=== PATIENT | male | born 1945 | race Caucasian/White ===

== ENCOUNTER 2022-03-19 00:34 | Day surgery (SDC) | payer MEDICARE, SELFPAY ==
--- NOTE | 2022-03-18 13:07 | PC.NURSE ---
Report to the Outpatient Waiting Room, entrance under the green pavilion located off [address], at time 1400 on date __03/19/22 . Planned Procedure Time: _1600 . Time changes happen often and if your time is changed the preop area will call you the afternoon before. - You and your visitor will be asked to self-screen and do not enter if you have any COVID symptoms. - Only one visitor is requested with a max of two and NO children visitors are allowed at this time. - The patient visitor may be requested to leave or wait in car when not with patient due to distancing restrictions. - A mask is optional within the hospital. Patients may have clear liquids (water, carbonated beverages, clear teas, apple juice) until 3 hours prior to surgery with a maximum of 20 ounces. - No food from midnight until time of surgery - Infants may have breast milk until 4 hours before surgery, formula 6 hours prior to surgery. - Children will be allowed to drink immediately following surgery. If applicable, please bring a bottle or sippy cup to assist with drinking. Juice, water, soda, and popsicles are readily available. For infants on formula, please bring formula the day of surgery. Pacifiers are allowed. Take the following medications with a SIP of water the morning of surgery: ____AMLODIPINE Medications to discontinue per physician __PT STATES LAST DOSE ASPIRIN AND NAPRORXEN _TODAY PER DR GONZALES Date to take last dose Please no make-up, nail swazi, hairspray, perfume, deodorant, or body powder the day of surgery. No jewelry (including any body piercings) or valuables the day of surgery, leave them at home. Please take a shower or bath the night before, or the morning of, surgery with an antibacterial soap. Wear comfortable, loose fitting clothing. Children are encouraged to wear pajamas. - Jewelry must be removed prior to entering the operating room. Rings and piercings that are not removed may be cut off. - The hospital will not accept responsibility for valuables. - Please leave all valuables, including medications, at home the day of surgery. If you are going home after surgery, a licensed chuck wagon driver must drive you home. - NO public transportation without another adult if you receive anesthesia. - We recommend that an adult stay with you for 24 hours following discharge. - We also recommend that you do not drive, make important decision, drink alcoholic beverages, or take any drugs that were not prescribed by your health care provider for at least 24 hours after your discharge lonnie Follow any additional instructions given to you from your surgeon. If you or anyone in your household have experienced Covid symptoms in the past week, please notify your surgeon or the nurse liaison at the phone number below for possible testing. Telephone instructions given to __PATIENT and asked if any additional questions and then verbalized understanding. Patient advised to call surgeon office or pre surgery nurse liaison [phone] if any additional questions.
[2022-03-18 13:14] VITALS: BMI 43.3
[2022-03-19] VITALS (7 sets, daily range): BP systolic 125–172; BP diastolic 70–95; PULSE 55–75; RESP 10–16; TEMP 36.4–36.7; O2SAT 98–100
--- NOTE | ~2022-03-19 | XR_ITS ---
XR urethrocystogram DATE: 03/19/2022 15:08 INDICATION: Urethral dilatation TECHNIQUE: 2 spot C-arm images of the pelvic area 28.9 seconds fluoroscopy time [id number] mGym2 COMPARISON: None FINDINGS: A catheter overlies the urethra and urinary bladder. A small amount of contrast material wi thin the urinary bladder. IMPRESSION: Urethral dilatation; please refer to urology procedure report. Reviewed, dictated and finalized at [facility] Reviewed, dictated and finalized at [facility]. TO CHIP FRIER
--- NOTE | 2022-03-19 08:04 | ECG_ITS ---
Measurements Intervals [place] Rate: 67 P: 49 MD: 197 QRS: -23 QRSD: 106 T: -4 QT: 377 QTc: 398 Interpretive Statements SINUS RHYTHM INFERIOR INFARCT, AGE INDETERMINATE ABNORMAL ECG NO PREVIOUS ECG AVAILABLE FOR COMPARISON Electronically Signed On 03-19-2022 12:56:36 HEMODIALYSIS LAB TECHNICIAN by Erich German D.O.
[2022-03-19 13:04] LABS: Anion Gap 7 mmol/L (8-16); Blood Urea Nitrogen 15 mg/dL (9-20); Calcium 8.9 mg/dL (8.4-10.2); Carbon Dioxide 28 mmol/L (22-30); Chloride 100 mmol/L (98-107); Estimated CRCL calculation 79 ml/min; Estimated Glomerular Filt Rate > 60; Glucose 106 mg/dL (65-110); Potassium 4.2 mmol/L (3.4-5.0); Sodium 135 mmol/L (137-145)
[2022-03-19] MEDS: LACTATED RINGERS 1,000 ML 30 ML IV CONT (13:18)
--- NOTE | 2022-03-19 13:52 | WPDANESEPPF ---
Anes - Initial Pre Proc Eval Procedure: Operation Date: 03/19/22 14:30 Proposed Procedures p Cystoscopy with Urethral Dilation, Retrograde Urethrogram - Patrick Haney MD Date/Time: 03/19/22 13:52 Surgeon: Patrick Haney MD Pre Op Diagnosis: uretheral stricture Patient Data Age: 77 Gender: M Height: 1.73 m Weight: 129 kg Last Vital Signs Temp 36.7 C 03/19/22 12:57 Pulse 75 03/19/22 12:57 Resp 14 03/19/22 12:57 BP 134/85 03/19/22 12:57 Pulse Ox 100 03/19/22 12:57 O2 Del Method Room Air 03/19/22 12:57 Allergies Allergy/AdvReac Type Severity Reaction Status Date / Time doxycycline AdvReac Severe urinary Verified 03/19/22 13:18 retention Penicillins AdvReac Severe Rash Verified 03/19/22 13:18 amlodipine [From Lotrel] AdvReac Unknown Unknown Verified 03/19/22 13:18 benazepril [From Lotrel] AdvReac Unknown Unknown Verified 03/19/22 13:18 Home Medications Medication Instructions Recorded Confirmed Type amlodipine 5 mg tablet 5 mg PO DAILY #90 tabs 01/01/22 03/18/22 Rx aspirin 81 mg chewable tablet 81 mg PO DAILY 01/01/22 03/18/22 History (Lea Chewable Low Dose Aspirin) furosemide 20 mg tablet 20 mg PO QAM #90 tabs 01/01/22 03/18/22 Rx metoprolol succinate 50 mg 50 mg PO DAILY #90 tabs 01/01/22 03/18/22 Rx tablet,extended release 24 hr naproxen 500 mg tablet 500 mg PO BID #180 tabs 01/01/22 03/18/22 Rx tamsulosin 0.4 mg capsule 0.4 mg PO DAILY #90 caps 01/01/22 03/18/22 Rx hydrocortisone 2.5 % topical cream 1 applic topical BID PRN 03/13/22 03/18/22 Rx hemorrhoids #30 grams Laboratory Tests 03/19/22 12:35 Sodium 135 mmol/L L mmol/L (137-145) Potassium 4.2 mmol/L mmol/L (3.4-5.0) Chloride 100 mmol/L mmol/L (98-107) Carbon Dioxide 28 mmol/L mmol/L (22-30) Anion Gap 7 mmol/L L mmol/L (8-16) BUN 15 mg/dL mg/dL (9-20) Creatinine 0.90 mg/dL mg/dL (0.7-1.3) Estim Creat Clear Calc 79 ml/min ml/min Estimated GFR > 60 (59 - ) Glucose 106 mg/dL mg/dL (65-110) Calcium 8.9 mg/dL mg/dL (8.4-10.2) Patient hx anesthesia problems: none Family hx anesthesia problems: none Results Review: All pre-operative results and documents have been reviewed as part of the pre-operative evaluation. [facility], [facility] Past Medical History Medical History GERD (gastroesophageal reflux disease) History of prostate cancer Hypertension Osteoarthritis Raynauds disease Urethral stricture Urinary retention Social History Social History Smoking status: Never smoker Tobacco type: cigarettes Smoking end date: 03/08/66 Alcohol intake: current Alcohol use details: rarely Substance use: never Substance use type: does not use Living arrangements: with family Gender identity (if verbalized by the patient): Male Sexual Orientation (if Verbalized by the Patient): Straight or Heterosexual Spiritual care concerns: No Anes - Eval Final PreProcedure Day of Procedure 03/19/22 13:52 Patient weight: morbidly obese Heart: regular rate and rhythm Lungs: clear to auscultation Airway: Mallampati scale class II Neurological: alert and oriented Last oral intake: >/= 8 hours ASA classification: III Emergent: no Anesthetic plan: proceed Anesthesia type and monitoring: general LMA and standard monitoring Results Review: All pre-operative results and documents have been reviewed as part of the pre-operative evaluation. Informed Consent: The patient's anesthetic plan and its attendant risks and benefits were discussed with the patient/family/POA. Questions were solicited and answers provided to the satisfaction of the patient/family/POA.
[2022-03-19 14:10] LABS: Appearance Urine Clear (Clear); Bilirubin Urine Negative (Negative); Blood Urine Trace-intact (Negative); Color Urine Yellow (Yellow); Glucose Urine UA Negative (Negative); Ketones Urine Negative (Negative); Leukocyte Esterase Ur 1+ LEU/UL (Negative); Nitrate Urine Negative (Negative); Protein Urine 2+ mg/dL (Negative)
--- NOTE | 2022-03-19 14:20 | WPDHPUPDATE1 ---
History and Physical Update Update Date/Time: 03/19/22 14:20 History and Physical has been reviewed, including an updated exam of the patient. There are NO changes in the patient's condition. Risks, benefits, and alternatives have been discussed and questions answered. Patient agrees to proceed with procedure. Proceed with retrograde urethrogram and urethral dilatation with cystoscopy
[2022-03-19 14:23] LABS: Bacteria Urine Trace /hpf; Mucus Urine Rare /lpf; Squamous Epithelial Cell Urine Rare /hpf (Few); WBC Urine 31-50 /hpf
[2022-03-19 14:35] LABS: Add Urine Microscopic? YES
[2022-03-19] MEDS: ceFAZolin 3 GM/D5W 100 ML 100 ML IVPB (14:39)
[2022-03-19] MEDS: LIDOCAINE HCL 2% GEL UROJET 10 ML PKG MUCOUS MEM (15:03)
--- NOTE | 2022-03-19 15:07 | W.PM.PROC2 ---
Procedure Note - Detailed Date of Procedure 03/19/22 Pre-op Diagnosis uretheral stricture Post-op Diagnosis Same Procedure Performed Retrograde urethrogram, urethral dilation with amplantz dilators, cystoscopy Surgeon Patrick Haney MD Anesthesia General Description of Procedure Patient is taken to the operative suite correctly identified. Once anesthesia was obtained was placed in dorsal lithotomy position and prepped and draped usual sterile fashion. Nineteen [place] scope inserted into the meatus but the stricture was too tight. We thus placed a red rubber catheter into the meatus did a retrograde urethrogram. There was bulbar stricture the proximal urethra. We were able to manipulate a superstiff wire through the stricture up into the bladder. Using dilators we dilated up to 22 [place]. Reinspection with the cystoscope revealed no other abnormalities in the bladder. He does have some minimal lateral lobe. The bladder itself has 1+ trabeculation without any evidence of tumors. 2% viscous lidocaine was inserted into the urethra. A 18 [place] tip catheter was then passed over the wire and 10 cc were placed in the balloon. Patient is taken recovery stable condition. He will follow-up next Wednesday or for Rangel catheter removal. Estimated Blood Loss 0 Drains Yes Packing No Pathology None sent Complications No immediate complications Condition Stable Disposition PACU
[2022-03-19 15:20] LABS: Glucose Point of Care 108 mg/dl (65-105)
== END 2022-03-19 17:06 | disposition home or self-care (01) ==
PROVIDERS: Anesthesiology; PCP Physician Assistant Medical; Visit Provider Urology
PROC: (CPT 52352; principal; 2022-03-19 14:30)
DX: N35.912 Unspecified bulbous urethral stricture, male (principal); I10 Essential (primary) hypertension; K21.9 Gastro-esophageal reflux disease without esophagitis; I73.00 Raynaud's syndrome without gangrene; Z79.82 Long term (current) use of aspirin; Z85.46 Personal history of malignant neoplasm of prostate; Z87.891 Personal history of nicotine dependence; E66.01 Morbid (severe) obesity due to excess calories; Z68.41 Body mass index [BMI] 40.0-44.9, adult; Z79.899 Other long term (current) drug therapy
CPT/HCPCS: 52281; 36415; 51610; 74450; 80048; 81001; 82948; 87086; 87147; 87181; 87186; 93005; A9270; C1726; C1758; C1769; J0690; J1100; J2405; J2704; J3010; J7120

== ENCOUNTER 2023-06-28 15:34 | Emergency (ER) | payer MEDICARE, SELFPAY ==
[2023-06-28 15:37] VITALS: BP 148/70; PULSE 99; RESP 20; TEMP 36.7; O2SAT 98
--- NOTE | 2023-06-28 16:07 | ED.MALEGU ---
HPI - Male Genitourinary General Chief complaint: Urogenital-Male Stated complaint: urinary retention Time Seen by Provider: 06/28/23 15:44 History of Present Illness HPI Narrative: Pt presents with inability to void urine. Pt has history of prostate cancer and BPH and has had to have silva placed in past. Pt has not voided since early this morning. Pt has seen Dr Haney in past. Related Data Home Medications Medication Instructions Recorded Confirmed aspirin 81 mg chewable tablet 81 mg PO DAILY 01/01/22 06/22/23 (Lea Chewable Low Dose Aspirin) furosemide 20 mg tablet 10 mg PO DAILY 03/05/23 06/22/23 Allergies Allergy/AdvReac Type Severity Reaction Status Date / Time doxycycline AdvReac Severe urinary Verified 06/28/23 15:35 retention Penicillins AdvReac Severe Rash Verified 06/28/23 15:35 benazepril [From Lotrel] AdvReac Unknown Unknown Verified 06/28/23 15:35 Review of Systems Review of Systems: All systems reviewed & are unremarkable except as noted in HPI and below PMFSH Past Medical History Medical History (Updated 06/28/23 @ 17:15 by Nery Olivas III, DO) GERD (gastroesophageal reflux disease) History of prostate cancer Hyperglycemia Hypertension Osteoarthritis Raynauds disease Urethral stricture Urinary retention Surgical History Surgical History No pertinent past surgical history Social History Social History Smoking status: Former smoker Tobacco type: cigarettes Smoking end date: 03/08/66 Alcohol intake: current Alcohol use details: rarely Substance use: never Substance use type: does not use Lack of Transportation: No Lack of Food: Never True Current Housing: I Have Housing Concerned About Future Housing: No Difficulty Paying Gas/Electric Bills: No Difficulty Paying for Meds: No Currently Unemployed: No Difficulty w/ Childcare or Family Care: No Living arrangements: with family Occupation/Education: retired Gender identity (if verbalized by the patient): Male Sexual Orientation (if Verbalized by the Patient): Straight or Heterosexual Spiritual care concerns: No Exam Const: General: healthy appearing Nutritional Appearance: well nourished Limitations: no limitations Resp: Effort & Inspection: normal respiratory effort Auscultation: clear to auscultation bilaterally Cardio: Rate: regular rate Rhythm: regular rhythm GI: GI Palp: Yes Soft to palpation and Yes Tenderness to palpation present (GI) (suprapubic) Auscultation: normal bowel sounds : Scrotum: scrotum normal Skin: General skin exam: normal color Wounds: no wounds Neuro: General: patient oriented x3, moves all extremities, no meningeal signs and no focal motor deficits Cranial nerves: Yes CN's II-XII intact bilaterally Speech: normal speech Extrem: General: normal to inspection and no clubbing, cyanosis or edema Psych: Mental Status: mental status grossly normal Affect: normal affect Attitude: cooperative Course Vital Signs Vital signs: Vital Signs Temperature 98.0 F 06/28/23 15:37 Pulse Rate 99 06/28/23 15:37 Respiratory Rate 20 06/28/23 15:37 Blood Pressure 148/70 H 06/28/23 15:37 Pulse Oximetry 98 06/28/23 15:37 Oxygen Delivery Room Air 06/28/23 15:37 Temperature 98.0 F 06/28/23 15:37 Pulse Rate 99 06/28/23 15:37 Respiratory Rate 20 06/28/23 15:37 Blood Pressure 148/70 H 06/28/23 15:37 Pulse Oximetry 98 06/28/23 15:37 Oxygen Delivery Room Air 06/28/23 15:37 MDM - Male Genitourinary MDM Narrative Medical decision making narrative: likely bph. will place silva and send of ua. ua clear silva placed and pt feels much better. will send home with leg bag and follow up with Dr Haney. Lab Data Labs: Lab Results 06/28/23 Range/Units 16:23 Urine Color Yellow (Yellow) Ur
[2023-06-28 17:00] LABS: Appearance Urine Clear (Clear); Bacteria Urine None Seen /hpf; Bilirubin Urine Negative (Negative); Blood Urine 1+ (Negative); Color Urine Yellow (Yellow); Glucose Urine UA Negative (Negative); Ketones Urine Negative (Negative); Leukocyte Esterase Ur Negative LEU/UL (Negative); Nitrate Urine Negative (Negative); Non Pathogenic Casts 0-2; Protein Urine Negative (Negative); RBC Urine 0-2 /hpf (0-2); Specific Grav Ur 1.005 (1.001-1.035); Squamous Epithelial Cell Urine None Seen /hpf (Few); Urobilinogen Urine 0.2 mg/dL (<2.0); WBC Urine 0-5 /hpf (0-3)
[2023-06-28 17:06] LABS: Add Urine Microscopic? YES
== END 2023-06-28 18:07 | disposition home or self-care (01) ==
PROVIDERS: Emergency Provider Emergency Medicine; PCP Physician Assistant Medical
DX: R33.9 Retention of urine, unspecified (principal); K21.9 Gastro-esophageal reflux disease without esophagitis; Z85.46 Personal history of malignant neoplasm of prostate; I10 Essential (primary) hypertension; M19.90 Unspecified osteoarthritis, unspecified site; I73.00 Raynaud's syndrome without gangrene
CPT/HCPCS: 51702; 81001; 99283

== ENCOUNTER 2025-01-11 05:10 | Emergency (ER) | payer MEDICARE, SELFPAY ==
[2025-01-11 05:15] VITALS: BP 187/87; PULSE 74; RESP 18; O2SAT 100
--- NOTE | 2025-01-11 05:21 | PC.NURSE ---
post void bladder scan 715ml
--- NOTE | 2025-01-11 06:15 | ED.GENADULT ---
HPI - General Adult General Chief complaint: Urogenital-Male Stated complaint: unable to urinate Time Seen by Provider: 01/11/25 05:24 History of Present Illness HPI narrative: This is a 79-year-old male with a history of urethral stricture presenting for urinary retention. Patient says that his stream has been getting weaker over the last several weeks and then today he has been unable to pass more than a couple drops. He is now having fullness in his lower abdomen but no true pain. No other symptoms. He saw Dr. Garcia - Urology on December 25 Appears they are arranging to do another dilation. Related Data Home Medications ?Medication ?Instructions ?Recorded ?Confirmed ?Last Taken ?Type aspirin 81 mg chewable tablet 81 mg PO DAILY 01/01/22 12/18/24 Unknown History (Lea Chewable Low Dose Aspirin) furosemide 20 mg tablet 10 mg PO DAILY 12/18/24 12/18/24 Unknown History tamsulosin 0.4 mg capsule 0.4 mg PO QHS 12/28/24 Unknown History Allergies Allergy/AdvReac Type Severity Reaction Status Date / Time doxycycline AdvReac Severe urinary Verified 01/11/25 05:11 retention Penicillins AdvReac Severe Rash Verified 01/11/25 05:11 benazepril (From Lotrel) AdvReac Unknown Unknown Verified 01/11/25 05:11 REPLACED BY [facility] Past Medical History Medical History (Updated 01/11/25 @ 06:20 by Brandon Sher MD) Hyperglycemia Urinary retention Urethral stricture Hypertension Raynauds disease GERD (gastroesophageal reflux disease) Osteoarthritis History of prostate cancer radiation treatment 2018 Surgical History Surgical History No pertinent past surgical history Social History Social History Tobacco type: cigarettes Smoking end date: 03/08/66 Alcohol intake: current Alcohol use details: rarely Substance use: never Substance use type: does not use Lack of Transportation: No Lack of Food: Never True Current Housing: I Have Housing Concerned About Future Housing: No Difficulty Paying Gas/Electric Bills: No Difficulty Paying for Meds: No Currently Unemployed: No Difficulty w/ Childcare or Family Care: No Living arrangements: with family Occupation/Education: retired Gender identity (if verbalized by the patient): Male Sexual Orientation (if Verbalized by the Patient): Straight or Heterosexual Spiritual care concerns: No Exam Narrative: APPEARANCE: No apparent distress. Head: atraumatic. EYES: EOMI, NOSE: Atraumatic NECK: Trachea midline RESPIRATORY: No increased rate of breathing CARDIOVASCULAR: RRR, ABDOMINAL: Fullness in the suprapubic region : normal external genitalia MUSCULOSKELETAl: No obvious deformities NEURO: Alert. Moving 4/4 extremities SKIN:: Warm, dry. Normal color PSYCHIATRIC: Normal affect Course Vital Signs Vital signs: Vital Signs Pulse Rate 74 01/11/25 05:15 Respiratory Rate 18 01/11/25 05:15 Blood Pressure 187/87 H 01/11/25 05:15 Pulse Oximetry 100 01/11/25 05:15 Oxygen Delivery Room Air 01/11/25 05:15 Pulse Rate 74 01/11/25 05:15 Respiratory Rate 18 01/11/25 05:15 Blood Pressure 187/87 H 01/11/25 05:15 Pulse Oximetry 100 01/11/25 05:15 Oxygen Delivery Room Air 01/11/25 05:15 Medical Decision Making MDM Narrative Medical decision making narrative: -Course: 79-year-old male with urethral stricture presenting urinary retention. 750 cc postvoid residual. multiple attempts were made to place a Silva catheter using multiple different sizes and a coude without success. Urology was consulted. Dr. Goodson is coming to bedside. Silva was placed. Discharged with urology follow-up. -DDX includes but is not limited to: urethral stricture, UTI Vital Signs Vital Signs: Vital Signs Pulse Rate 74 01/11/25 05:15 Respiratory Rate 18 01/11/25 05:15 Blood Pressure 187/87 H 01/11/25 05:15 Pulse Oximetry 100 01/11/25 05:15 Oxygen Delivery Room Air 01/11/25 05:15 Pulse Rate 74 01/11/25 05:15 Respiratory Rate 18 01/11/25 05:15 Blood Pressure 187/87 H 01/11/25 05:15 Pulse Oximetry 100 01/11/25 05:15 Oxygen Delivery Room Air 01/11/25 05:15 Discharge Plan Discharge Clinical Impression: Acute urinary retention Patient Disposition: Home Condition: Stable Instructions: Antibiotic Form, Urinary Retention in Men (ED) Additional Instructions: Please follow-up with your urologist 5-7 days. Please return if your silva stops draining or you develop abdominal pain. Patient Language: Com[place] Prescriptions: No Action aspirin [Lea Chewable Aspirin] 81 mg tablet,chewable 81 mg PO DAILY furosemide 20 mg tablet 10 mg PO DAILY amlodipine 5 mg tablet 5 mg PO DAILY Qty: 90 1RF metoprolol succinate 50 mg tablet extended release 24 hr 50 mg PO DAILY Qty: 90 1RF naproxen 500 mg tablet 500 mg PO BID Qty: 180 0RF hydrocortisone 2.5 % cream 1 applic topical BID PRN (Reason: hemorrhoids) Qty: 30 2RF tamsulosin 0.4 mg capsule 0.4 mg PO QHS lisinopril 5 mg tablet 5 mg PO DAILY Qty: 30 0RF Follow-up/Referrals: PHYSICIAN,CON[facility]CTOR [employer] [Primary Care Provider, Internal Medicine]
--- NOTE | 2025-01-11 07:14 | WPDURCON ---
Assessment and Plan Assessment and plan (1) Acute urinary retention: Code(s): R33.8 - Other retention of urine Status: Acute (2) Urethral stricture: Code(s): N35.919 - Unspecified urethral stricture, male, unspecified site Status: Acute (3) Urinary retention: Code(s): R33.9 - Retention of urine, unspecified Status: Acute Assessment and Plan: Bulbous urethral stricture dilated to 22F at bedside / 18F Coude' catheter placed. Urology Consult Note HPI Date Seen: 01/11/25 Primary Care Provider: T[employer] W[employer]ER PHYSICIAN Consult Narrative Narrative: Marco Radford is a 79 year old male with history of urethral stricture that has recurred. In ER with retention 700cc and staff unable to place catheter. Review of Systems Review of Systems: All systems reviewed & are unremarkable except as noted in HPI and below PMFSH Past Medical History Medical History (Updated 01/11/25 @ 06:20 by Brandon Sehr MD) Hyperglycemia Urinary retention Urethral stricture Hypertension Raynauds disease GERD (gastroesophageal reflux disease) Osteoarthritis History of prostate cancer radiation treatment 2017 Surgical History Surgical History No pertinent past surgical history Social History Social History Tobacco type: cigarettes Smoking end date: 03/08/66 Alcohol intake: current Alcohol use details: rarely Substance use: never Substance use type: does not use Lack of Transportation: No Lack of Food: Never True Current Housing: I Have Housing Concerned About Future Housing: No Difficulty Paying Gas/Electric Bills: No Difficulty Paying for Meds: No Currently Unemployed: No Difficulty w/ Childcare or Family Care: No Living arrangements: with family Occupation/Education: retired Gender identity (if verbalized by the patient): Male Sexual Orientation (if Verbalized by the Patient): Straight or Heterosexual Spiritual care concerns: No Meds Home Medications and Allergies Home Medications ?Medication ?Instructions ?Recorded ?Confirmed ?Type aspirin 81 mg chewable tablet 81 mg PO DAILY 01/01/22 12/18/24 History (Lea Chewable Low Dose Aspirin) amlodipine 5 mg tablet 5 mg PO DAILY #90 tabs 12/18/24 12/18/24 Rx furosemide 20 mg tablet 10 mg PO DAILY 12/18/24 12/18/24 History hydrocortisone 2.5 % topical cream 1 applic topical BID PRN 12/18/24 12/18/24 Rx hemorrhoids #30 grams metoprolol succinate 50 mg 50 mg PO DAILY #90 tabs 12/18/24 12/18/24 Rx tablet,extended release 24 hr naproxen 500 mg tablet 500 mg PO BID #180 tabs 12/18/24 12/18/24 Rx tamsulosin 0.4 mg capsule 0.4 mg PO QHS 12/28/24 History lisinopril 5 mg tablet 5 mg PO DAILY #30 tabs 01/02/25 Rx Allergies Allergy/AdvReac Type Severity Reaction Status Date / Time doxycycline AdvReac Severe urinary Verified 01/11/25 05:11 retention Penicillins AdvReac Severe Rash Verified 01/11/25 05:11 benazepril (From Lotrel) AdvReac Unknown Unknown Verified 01/11/25 05:11 Vital Signs Vital Signs - 24 hr 01/11/25 05:15 Pulse Rate 74 Respiratory Rate 18 Blood Pressure 187/87 H Pulse Oximetry 100 Oxygen Delivery Room Air Exam Const: General: no acute distress Resp: Effort & Inspection: normal respiratory effort GI: Inspection: non-distended GI Palp: No abdominal tenderness and No Guarding due to palpation present (GI) Auscultation: normal bowel sounds
[2025-01-11 07:22] VITALS: BP 157/75; PULSE 78; RESP 18; O2SAT 97
--- OUTSIDE RECORDS SUMMARY | 2025-01-11 16:13 | XMS_ITS | Clinical Summary ---
Author Organization [facility] Address [address] [place] [address] Care Team Providers Care Book Mender Name Role Phone Tremayne Jackson MD Primary Care Provider [phone] Allergies Active Allergy Reactions Criticality Noted Date Comments Penicillins Unknown 12/02/2020 Medications amLODIPine 5 MG tablet Take 5 mg by mouth daily. 11/12/2020 Active furosemide 40 MG tablet Take 40 mg by mouth every morning. Take one half tablet (20 mg daily) 11/22/2020 Active metoprolol succinate ER 50 MG 24 hr tablet Take 50 mg by mouth nightly. 11/13/2020 Active naproxen 500 MG tablet Take 500 mg by mouth 2 (two) times daily with meals. 11/13/2020 Active fexofenadine 180 MG tablet Take 180 mg by mouth daily. Active aspirin EC (ECOTRIN) 81 MG tablet Take 81 mg by mouth daily. Active vitamin D3, cholecalciferol, 1000 UNIT Tab tablet Take 1 tablet by mouth daily. Active HYDROcodone-acet aminophen 5-325 MG tabletIndication s:Acute Pain < 3 Day Supply Take 1 tablet by mouth every 4 (four) hours as needed. Indications: Acute Pain < 3 Day Supply 10 tablet 01/14/2021 Active tamsulosin 0.4 MG CapIndications:B enign prostatic hyperplasia with urinary obstruction Take 1 capsule (0.4 mg total) by mouth daily. 90 capsule 3 01/23/2021 Active Active Problems Problem Noted Date Diagnosed Date Malignant neoplasm of prostate 12/11/2020 Retention of urine 12/11/2020 Family History Medical History Relation Comments Heart Father Heart Mother Relation Status Comments Father Mother Social History Tobacco Use Types Packs/Day Years Used Date Smoking Tobacco: Never Smokeless Tobacco: Former Chew Quit: 1989 Tobacco Cessation:Counseling Given: No Alcohol Use Standard Drinks/Week Comments Not Currently 0 (1 standard drink = 0.6 oz pur e alcohol) PHQ-2 Answer Date Recorded PHQ-2 Score - If the patient scores above 3, please move on to questions 3-9 0 01/15/2022 Sex and Gender Information Value Date Recorded Sex Assigned at Not on file Legal Sex Male 6:24 PM CDT Gender Identity Not on file Sexual Orientation Not on file Last Filed Vital Signs Vital Sign Reading Time Taken Comments Blood Pressure 138/82 01/15/2022 9:29 AM [employer] Pulse 78 01/15/2022 9:29 AM [employer] Temperature 36.3 C (97.4 F) 01/15/2022 9:29 AM [employer] Respiratory Rate 18 01/15/2022 9:29 AM [employer] Oxygen Saturation 98% 01/15/2022 9:29 AM [employer] Inhaled Oxygen Concentration - - Weight 130.3 kg (287 lb 3.2 oz) 01/15/2022 9:29 AM [employer] Height 170.2 cm (5' 7) 01/15/2022 9:29 AM [employer] Body Mass Index 44.98 01/15/2022 9:29 AM [employer] Plan of Treatment Health Maintenance Due Date Last Done Comments Hepatitis C 1963 DTaP, Tdap and Td Vaccines ( 1 - Tdap) 1964 Pneumococcal Vaccine: 50+ Years (1 of 1 - PCV) 1995 Zoster Vaccines (1 of 2) 1995 Annual Medicare Wellness Visit 2010 RSV Immunization or 60+ Years (1 - 1-dose 75+ series) 2020 COVID-19 Vaccine (3 - 2024-2 6 season) 2024 05/28/2020, 05/07/2020 Influenza Adult (#1) 2024 12/26/2019 Hepatitis A Vaccines Aged Out No long er eligible based on patient's age to complete this topic Meningococcal B Vaccine Aged Out No l onger eligible based on patient's age to complete this topic Meningococcal Vaccine Aged Out No manuel chen eligible based on patient's age to complete this topic RSV Immunizations Under 20 Months Aged Out No longer eligible b ased on patient's age to complete this topic Insurance MEDICARE [facility] Care Teams Book Mender Relationship Specialty Start Date End Date Tremayne Jackson MD [address] [place] [id number] PCP - General FAMILY PRACTICE 01/15/22
== END 2025-01-11 07:23 | disposition home or self-care (01) ==
PROVIDERS: Emergency Provider Emergency Medicine
DX: N35.912 Unspecified bulbous urethral stricture, male (principal); R33.9 Retention of urine, unspecified; I73.00 Raynaud's syndrome without gangrene; I10 Essential (primary) hypertension; K21.9 Gastro-esophageal reflux disease without esophagitis; M19.90 Unspecified osteoarthritis, unspecified site; Z85.46 Personal history of malignant neoplasm of prostate; Z92.3 Personal history of irradiation; Z87.891 Personal history of nicotine dependence
CPT/HCPCS: 51702; 99283; J7030